=== PATIENT | female | born 1990 | race Two or more races ===

== ENCOUNTER 2017-10-04 11:21 | Emergency (ER) | payer OTHER ==
[~2017-10-04] VITALS: Ht 172.7 cm; Wt 81.4 kg
[2017-10-04 13:26] LABS: APPEARANCE CLEAR ((CLEAR)); BILIRUBIN NEGATIVE; BLOOD NEGATIVE; COLOR YELLOW ((YELLOW)); GLUCOSE (STRIP) NEGATIVE; KETONES NEGATIVE; LEUKOCYTES TRACE; NITRITE NEGATIVE; PROTEIN (STRIP) 30; SPECIFIC GRAVITY 1.025 (1.000-1.030)
[2017-10-04 13:32] LABS: BACTERIA NONE SEEN /HPF; EPITHELIAL CELLS RARE /HPF; MUCUS 2+ /LPF; UCUL ADDED? NO; WHITE BLOOD CELLS 0-5 /HPF (0-5)
[2017-10-04] MEDS ORDERED: TRAMADOL HCL50 MG PO (16:15)
[2017-10-04] MEDS ORDERED: MOTRIN600 MG PO (16:15)
[2017-10-04] MEDS ORDERED: SKELAXIN800 MG PO (16:15)
[2017-10-04 16:31] VITALS: BP 125/78
== END 2017-10-04 16:33 | disposition home or self-care (01) ==
LOC: EME 11:21
PROVIDERS: Physician Assistant
DX: S39.012A Strain of muscle, fascia and tendon of lower back, initial encounter (principal); K43.9 Ventral hernia without obstruction or gangrene; Z88.6 Allergy status to analgesic agent
CPT/HCPCS: 72100; 74176; 81003; 81025; 99281; 99284; J1885